=== PATIENT | female | born 1950 | race Caucasian/White ===

== ENCOUNTER 2024-04-03 06:21 | Day surgery (SDC) | payer MEDICARE, BC ==
[2024-03-31 13:19] VITALS: BMI 25.9
[2024-04-03] MEDS ORDERED: Bupivacaine HCl 0.5%/Epinephrine 1:200,000/PF 30 ml Vial ONE (08:30)
[2024-04-03] MEDS ORDERED: Lidocaine 2% MPF 10 ML AMP (For Epidural Use) ONE (08:30)
[2024-04-03] MEDS ORDERED: Isosulfan Blue 50 MG/5 ML VIAL ONE (08:31)
[2024-04-03] MEDS ORDERED: CEFAZOLIN 2 GM VIAL ONE (09:17)
[2024-04-03] MEDS ORDERED: KETAMINE 100 MG/ML (5ML VIAL) ONE (09:21)
[2024-04-03] MEDS ORDERED: Lidocaine 1% PF 5 ML VIAL ONE (09:21)
[2024-04-03] MEDS ORDERED: fentaNYL 50 mcg/mL 1 mL Vial ONE (09:21)
[2024-04-03] MEDS ORDERED: Etomidate 40 MG (20 mL) VIAL ONE (09:25)
[2024-04-03] MEDS ORDERED: Famotidine/PF 20 mg/2ml Vial ONE (09:47)
[2024-04-03] MEDS ORDERED: Ondansetron PF 4 MG/2 ML Vial ONE (11:10)
[2024-04-03] MEDS ORDERED: HYDROcodone/Acetaminophen 5/325 mg Tablet ONE (12:13)
== END 2024-04-03 13:30 | disposition home or self-care (01) ==
LOC: CSHSDC 06:21
PROVIDERS: ATTEND Surgery
PROC: 0HTU0ZZ Resection of Left Breast, Open Approach (ICD-10-PCS; principal; 2024-04-03)
PROC: 07T60ZZ Resection of Left Axillary Lymphatic, Open Approach (ICD-10-PCS; 2024-04-03)
DX: C50.912 Malignant neoplasm of unspecified site of left female breast (principal); C77.3 Secondary and unspecified malignant neoplasm of axilla and upper limb lymph nodes; E11.9 Type 2 diabetes mellitus without complications; M19.90 Unspecified osteoarthritis, unspecified site; K21.9 Gastro-esophageal reflux disease without esophagitis; F32.A Depression, unspecified; I10 Essential (primary) hypertension; E78.5 Hyperlipidemia, unspecified; J30.2 Other seasonal allergic rhinitis; F41.9 Anxiety disorder, unspecified; Z98.890 Other specified postprocedural states; Z90.49 Acquired absence of other specified parts of digestive tract; Z96.653 Presence of artificial knee joint, bilateral; Z91.012 Allergy to eggs; Z79.899 Other long term (current) drug therapy; Z79.84 Long term (current) use of oral hypoglycemic drugs; Z88.8 Allergy status to other drugs, medicaments and biological substances
CPT/HCPCS: 19281; 19301; 38525; 38900; 76098; 78195; A9541; J2405; J3010; J3490; Q9968; 88307; 88341; 88342

== ENCOUNTER 2025-02-19 09:11 | Outpatient (CLI) | payer MEDICARE, BC | END 2025-02-19 09:12 | disposition home or self-care (01) | LOC: CSHMAMMO 09:11 | PROVIDERS: ATTEND Internal Medicine Hematology & Oncology | DX: M81.0 Age-related osteoporosis without current pathological fracture (principal); C50.812 Malignant neoplasm of overlapping sites of left female breast; M85.851 Other specified disorders of bone density and structure, right thigh | CPT/HCPCS: 77066; 77080; G0279 ==